=== PATIENT | female | born 1960 | race Two or more races ===

== ENCOUNTER 2022-07-08 06:38 | Outpatient (CLI) | payer OTHER | END 2022-07-08 06:39 | disposition home or self-care (01) | LOC: LAB 06:38 | PROVIDERS: ATTEND Obstetrics & Gynecology | DX: Z20.818 Contact with and (suspected) exposure to other bacterial communicable diseases (principal); Z20.828 Contact with and (suspected) exposure to other viral communicable diseases ==

== ENCOUNTER → 2024-02-21 | Emergency (ER) | payer OTHER ==
[~2024-02-21] VITALS: Ht 170.2 cm; Wt 127.0 kg
[~2024-02-21] MED LIST: ZIPSOR25 MG
== END | disposition left against medical advice (07) ==
LOC: ER 17:26
DX: Z53.21 Procedure and treatment not carried out due to patient leaving prior to being seen by health care provider (principal)

== ENCOUNTER 2024-05-27 10:04 | Outpatient (CLI) | payer OTHER ==
[~2024-05-27 10:04] MED LIST changes: +AVAPRO300 MG PO; +HYDRODIURIL12.5 MG PO; +IRON236 MG PO; +PROTONIX40 MG PO; +TYLENOL ARTHRI650 MG PO
== END 2024-05-27 10:13 | disposition home or self-care (01) ==
LOC: SONOGRAMA 10:04
PROVIDERS: ATTEND Obstetrics & Gynecology
DX: N95.0 Postmenopausal bleeding (principal)

== ENCOUNTER 2024-06-28 08:15 | Inpatient (IN) | payer OTHER ==
[~2024-06-28] VITALS: Ht 198.1 cm; Wt 120.2 kg
[2024-06-28] MEDS ORDERED: COZAAR100 MG PO (09:52)
[2024-06-28] MEDS ORDERED: PEPCID AC20 MG PO (09:53)
[2024-06-28 09:59] VITALS: BP 135/85
[2024-06-28 10:48] LABS: HEMATOCRIT 36.5 % (36.0-45.00); HEMOGLOBIN 12.4 g/dL (12.0-15.00); MEAN CELL VOLUME 85.4 fL (80.00-100.00); PLATELET COUNT 389 K/uL (150-450); RED BLOOD COUNT 4.27 M/uL (4.00-6.00)
[2024-06-28 10:57] LABS: URINE APPEARANCE Clear; URINE BILIRRUBIN Negative (NEGATIVE); URINE BLOOD Negative; URINE COLOR Yellow; URINE GLUCOSE Negative (NEGATIVE); URINE KETONE Negative (NEGATIVE); URINE LEUKOCYTE Negative; URINE NITRATE Positive; URINE PROTEIN Negative (NEGATIVE); URINE UROBILINOGEN 0.2 E.U./dl
[2024-06-28 11:02] LABS: URINE EPITHELIAL CELLS 7.8 uL (0.0-38.8); URINE RBC 13.1 uL (0.0-20.8); URINE WBC 8.1 uL (0.0-23.2)
[2024-06-28 11:08] LABS: INR 1.01
[2024-06-28 11:11] LABS: URINE BACTERIA > 9821.5 uL (0.0-1933)
[2024-06-28 11:49] LABS: ALBUMIN 3.6 gm/dL (3.4-5.0); BILIRUBIN TOTAL 0.38 mg/dL (0.3-1.2); CALCIUM 9.5 mg/dL (8.5-10.1); CREATININE SERUM 0.77 mg/dL (0.55-1.02); GFR 75.96; GLOBULINA 3.7 G/DL (2.4-3.5); POTASSIUM 4.42 mEq/L (3.5-5.1); TOTAL PROTEIN 7.3 gm/dL (6.4-8.2)
[2024-06-28 12:19] LABS: RH POSITIVE
[2024-07-06] MEDS ORDERED: CEFAZOLIN SODIUM 1,000 MG VIAL IV ONE (08:30)
[2024-07-06] MEDS ORDERED: POVIDONE-IODINE 118 ML BOTT TOP ONE (08:30)
[2024-07-06] MEDS ORDERED: SUGAMMADEX SODIUM 200 MG/2 ML VIAL IV ONE (10:00)
[2024-07-06] MEDS ORDERED: MORPHINE SULFATE 4 MG/ML VIAL IV ONE ×2 (10:05→10:35)
[2024-07-06] MEDS ORDERED: DEXTROSE 5 % AND 0.9 % NACL 1,000 ML IV SCH (11:00)
[2024-07-06] MEDS ORDERED: RINGERS SOLUTION,LACTATED 1,000 ML IV SCH (11:00)
[2024-07-06 12:17] VITALS: BP 119/76
[2024-07-06] MEDS ORDERED: MEPERIDINE HCL/PF 25 MG/ML VIAL IM SCH (13:00)
[2024-07-06] MEDS ORDERED: PROMETHAZINE HCL 50 MG/ML AMPUL IM SCH (13:00)
[2024-07-06 15:38] VITALS: BP 102/67
[2024-07-06] MEDS ORDERED: ONDANSETRON HCL 2 MG/ML VIAL IV SCH (17:00)
[2024-07-06] MEDS ORDERED: CEFAZOLIN SODIUM 1,000 MG VIAL IV SCH (17:00)
[2024-07-06 20:10] VITALS: BP 129/73
[2024-07-07 00:34] VITALS: BP 95/60
[2024-07-07] MEDS ORDERED: OxyCODONE HCL/APAP UD (PERCOCET) PO SCH (06:00)
[2024-07-07 08:57] VITALS: BP 104/67
[2024-07-07] MEDS ORDERED: SIMETHICONE 125 MG CAPSULE PO SCH (09:00)
[2024-07-07 11:55] LABS: HEMATOCRIT 27.8 % (36.0-45.00); MEAN CELL VOLUME 86.5 fL (80.00-100.00); MEAN CORPUSCULAR HEMOGLOBIN 28.3 pg (27.00-32.0); MEAN CORPUSCULAR HGB CONC 32.8 g/dl (32.0-36.0); PLATELET COUNT 332 K/uL (150-450); RED BLOOD COUNT 3.21 M/uL (4.00-6.00); RED CELL DISTRIBUTION WIDTH 15.8 % (11.5-14.5)
[2024-07-07 11:57] LABS: HEMOGLOBIN 9.1 g/dL (12.0-15.00)
[2024-07-07 15:54] VITALS: BP 105/72
[2024-07-07 22:20] VITALS: BP 90/60
[2024-07-08] VITALS: BP 113/67
[2024-07-08 04:30] VITALS: BP 92/55
[2024-07-08] MEDS ORDERED: LOPERAMIDE HCL 2 MG CAPSULE PO NR (08:30)
[2024-07-08] MEDS ORDERED: ONDANSETRON 4 MG TAB.RAPDIS PO NR (08:30)
[2024-07-08 08:55] VITALS: BP 95/65
== END 2024-07-08 13:17 | disposition home or self-care (01) | DRG 743 ==
LOC: OB/GYN 07-06 05:20 → O/R 07-06 05:20 → SURH 07-06 08:15 → OB/GYN 07-06 10:40 → SURH 07-06 11:45 → OB/GYN 07-08 13:17
PROVIDERS: ADMIT Obstetrics & Gynecology; ATTEND Obstetrics & Gynecology
PROC: 0UT70ZZ Resection of Bilateral Fallopian Tubes, Open Approach (ICD-10-PCS; 2024-07-06)
PROC: 0UT20ZZ Resection of Bilateral Ovaries, Open Approach (ICD-10-PCS; 2024-07-06)
PROC: 0UT90ZL Resection of Uterus, Supracervical, Open Approach (ICD-10-PCS; principal; 2024-07-06 11:45)
DX: N80.03 Adenomyosis of the uterus (principal); Z20.822 Contact with and (suspected) exposure to COVID-19

== ENCOUNTER 2024-07-09 01:06 | Inpatient (IN) | payer OTHER ==
[~2024-07-09] VITALS: Ht 167.6 cm; Wt 117.9 kg
[~2024-07-09 01:06] MED LIST changes: +COZAAR100 MG PO; +PEPCID AC20 MG PO
--- NOTE | 2024-07-09 01:18 | NUR ---
PACIENTE ALERTA Y ORIENTADA X3 TRAIDA EN AMBULANCIA JUNTO A PARAMEDICOS. REFIERE COMENZAR CON DOLOR ABDOMINAL DESDE LA NOCHE DE HOY, REFIERE HISTERECTOMIA REALIZADA EL MIERCOLES PASADO POR DR. PATTIE WILL. SE CHON S/V Y SE UBICA.
[2024-07-09] MEDS ORDERED: HYOSCYAMINE SULFATE 0.125 MG TAB.SUBL SL STA (01:33)
[2024-07-09] MEDS ORDERED: MEPERIDINE HCL/PF 50 MG/ML VIAL IM STA (01:33)
[2024-07-09] MEDS ORDERED: PROMETHAZINE HCL 50 MG/ML AMPUL IM STA (01:34)
[2024-07-09] MEDS ORDERED: 0.9 % SODIUM CHLORIDE 1,000 ML IV STA (01:35)
--- NOTE | 2024-07-09 01:53 | NUR ---
SE ORIENTA A PACIENTE SOBRE ORDENES MEDICAS, REFIERE ENTENDER. SE COLECTAN MUESTRAS DE LABORATORIO BAJO MEDIDAS ASEPTICAS. PACIENTE CANALIZADA PREVIAMENTE EN AMBULANCIA. SE ADMINISTRAN MEDICAMENTOS SÁNCHEZ ORDEN MEDICA. SE NOTIFICA X-RAY.
[2024-07-09 02:43] LABS: HEMATOCRIT 29.7 % (36.0-45.00); HEMOGLOBIN 9.7 g/dL (12.0-15.00); MEAN CELL VOLUME 86.8 fL (80.00-100.00); MEAN CORPUSCULAR HEMOGLOBIN 28.4 pg (27.00-32.0); MEAN CORPUSCULAR HGB CONC 32.7 g/dl (32.0-36.0); PLATELET COUNT 401 K/uL (150-450); RED BLOOD COUNT 3.42 M/uL (4.00-6.00)
[2024-07-09 04:31] LABS: ALBUMIN 2.8 gm/dL (3.4-5.0); BILIRUBIN TOTAL 0.92 mg/dL (0.3-1.2); CREATININE SERUM 1.16 mg/dL (0.55-1.02); GFR 47.34; GLOBULINA 3.7 G/DL (2.4-3.5); POTASSIUM 3.48 mEq/L (3.5-5.1); TOTAL PROTEIN 6.5 gm/dL (6.4-8.2)
--- NOTE | 2024-07-09 06:16 | NUR ---
SE INSERTA NGT BAJO MEDIDAS ASEPTICAS EN FOSA NASAL RT. SE OBSERVA 300ML DE RESIDUO AMARILLENTO.
[2024-07-09] MEDS ORDERED: PIPERACILLIN/TAZOBACTAM SODIUM 3.375 GM VIAL IV STA (07:07)
--- NOTE | 2024-07-09 08:08 | NUR ---
SE RECIBE PACIENTE ALERTA Y ORIENTADA X 3 ESFERAS EN CAMA CON BARANDAS ELEVADAS POR SEGURIDAD EN COMPANIA DE FAMILIAR. PRESENTANDO BUEN PATRON RESPIRATORIO. RECIBIENDO IV'S 0.9NSS BAJANDO A 120ML/HR POR VENOPUNCION EN ANTEBRAZO [place] AREA CAROLA DE EDEMA Y ERITEMA. NGT EN FOSA NASAL IZQUIERDA DRENANDO A A SUCCION INTERMITENTE. SE OBSERVA EGRESO GASTRICO DE 600ML COLOR AMARILLO. SE ORIENTA A PACIENTE SOBRE TRATAMIENTO MEDICO, REFIERE ENTENDER. SE INSERTA SONDAS URINARIA BAJO MEDIDAS ESTERILES, SE COLECTAN MUESTRAS DE LABORATORIO Y SE ADMINISTRA MEDICAMENTO SÁNCHEZ ORDEN MEDICA. SE CORRINE A PACIENTE EN CAMA CON BARANDAS ELEVADAS POR SEGURIDAD EN COMPANIA DE FAMILIAR. PENDIENTE CONSULTA CON .
[2024-07-09 08:32] LABS: HEMATOCRIT 29.1 % (36.0-45.00); HEMOGLOBIN 9.6 g/dL (12.0-15.00); MEAN CELL VOLUME 86.2 fL (80.00-100.00); MEAN CORPUSCULAR HEMOGLOBIN 28.6 pg (27.00-32.0); MEAN CORPUSCULAR HGB CONC 33.1 g/dl (32.0-36.0); PLATELET COUNT 370 K/uL (150-450); RED BLOOD COUNT 3.38 M/uL (4.00-6.00); RED CELL DISTRIBUTION WIDTH 15.4 % (11.5-14.5)
[2024-07-09 08:34] LABS: URINE APPEARANCE Cloudy; URINE BILIRRUBIN Small (NEGATIVE); URINE BLOOD Trace; URINE COLOR Orange; URINE GLUCOSE Negative (NEGATIVE); URINE KETONE 15 (NEGATIVE); URINE LEUKOCYTE Trace; URINE NITRATE Positive
[2024-07-09 08:38] LABS: URINE CAST 6.33 uL (0.0-1.40); URINE EPITHELIAL CELLS 35.4 uL (0.0-38.8); URINE RBC 7.9 uL (0.0-20.8); URINE WBC 5.2 uL (0.0-23.2)
[2024-07-09 08:39] LABS: INR 1.07; PARTIAL THROMBOPLASTIN TIME 24.1 SECONDS (22.0-34.0); PROTHROMBIN TIME 11.6 SECONDS (9.0-11.5)
[2024-07-09] MEDS ORDERED: PIPERACILLIN/TAZOBACTAM SODIUM 3.375 GM VIAL IV SCH (08:55)
[2024-07-09] MEDS ORDERED: PANTOPRAZOLE SODIUM 40 MG/VIAL VIAL IV SCH (09:00)
[2024-07-09] MEDS ORDERED: 0.9 % SODIUM CHLORIDE 1,000 ML IV ONE (09:00)
[2024-07-09 09:06] LABS: URINE BACTERIA > 9821.5 uL (0.0-1933); URINE PROTEIN 100 (NEGATIVE)
[2024-07-09 09:08] LABS: URINE MUCUS HEAVY
[2024-07-09 17:34] VITALS: BP 110/77
[2024-07-10 08:33] VITALS: BP 104/71
[2024-07-10] MEDS ORDERED: PANTOPRAZOLE SODIUM 40 MG/VIAL VIAL IV SCH (09:00)
[2024-07-10] MEDS ORDERED: 0.9 % SODIUM CHLORIDE 1,000 ML IV SCH (09:45)
[2024-07-10 13:02] VITALS: BP 112/77
[2024-07-10 15:59] VITALS: BP 132/81
[2024-07-11 02:05] VITALS: BP 115/72
[2024-07-11 08:02] VITALS: BP 123/81
[2024-07-11 09:22] LABS: HEMATOCRIT 24.8 % (36.0-45.00); HEMOGLOBIN 8.1 g/dL (12.0-15.00); MEAN CORPUSCULAR HEMOGLOBIN 28.4 pg (27.00-32.0); MEAN CORPUSCULAR HGB CONC 32.7 g/dl (32.0-36.0); PLATELET COUNT 363 K/uL (150-450); RED BLOOD COUNT 2.85 M/uL (4.00-6.00); RED CELL DISTRIBUTION WIDTH 15.3 % (11.5-14.5)
[2024-07-11 10:25] LABS: ALBUMIN 2.2 gm/dL (3.4-5.0); BILIRUBIN TOTAL 1.72 mg/dL (0.3-1.2); CALCIUM 8.3 mg/dL (8.5-10.1); CREATININE SERUM 0.68 mg/dL (0.55-1.02); GFR 87.67; GLOBULINA 3.3 G/DL (2.4-3.5); POTASSIUM 3.53 mEq/L (3.5-5.1); TOTAL PROTEIN 5.5 gm/dL (6.4-8.2)
[2024-07-11 15:41] VITALS: BP 133/75
[2024-07-11 19:23] LABS: HEMATOCRIT 29.8 % (36.0-45.00); HEMOGLOBIN 10.1 g/dL (12.0-15.00); MEAN CELL VOLUME 86.6 fL (80.00-100.00); MEAN CORPUSCULAR HEMOGLOBIN 29.2 pg (27.00-32.0); MEAN CORPUSCULAR HGB CONC 33.8 g/dl (32.0-36.0); PLATELET COUNT 427 K/uL (150-450); RED BLOOD COUNT 3.44 M/uL (4.00-6.00); RED CELL DISTRIBUTION WIDTH 15.5 % (11.5-14.5)
[2024-07-12] VITALS: BP 136/72
[2024-07-12 12:11] VITALS: BP 128/81
[2024-07-12 16:14] VITALS: BP 137/83
[2024-07-12] MEDS ORDERED: AA 4.25%/CAL/LYTES/DEXT 5% 1,000 ML PERIFERAL SCH (17:00)
[2024-07-12 21:00] LABS: CALCIUM 8.7 mg/dL (8.5-10.1); CHOL HDL RATIO 3.1 (0-5.0); CREATININE SERUM 0.59 mg/dL (0.55-1.02); GFR 103.28; POTASSIUM 3.59 mEq/L (3.5-5.1)
[2024-07-13 01:14] VITALS: BP 137/78
[2024-07-13 08:22] VITALS: BP 140/86
[2024-07-13] MEDS ORDERED: PIPERACILLIN/TAZOBACTAM SODIUM 3.375 GM VIAL IV SCH (13:00)
[2024-07-13 16:49] LABS: HEMATOCRIT 27.1 % (36.0-45.00); HEMOGLOBIN 9.2 g/dL (12.0-15.00); MEAN CELL VOLUME 86.6 fL (80.00-100.00); MEAN CORPUSCULAR HEMOGLOBIN 29.4 pg (27.00-32.0); MEAN CORPUSCULAR HGB CONC 33.9 g/dl (32.0-36.0); PLATELET COUNT 426 K/uL (150-450); RED BLOOD COUNT 3.13 M/uL (4.00-6.00); RED CELL DISTRIBUTION WIDTH 15.6 % (11.5-14.5)
[2024-07-13 17:19] LABS: ALBUMIN 2.3 gm/dL (3.4-5.0); BILIRUBIN TOTAL 4.23 mg/dL (0.3-1.2); CALCIUM 8.3 mg/dL (8.5-10.1); CREATININE SERUM 0.51 mg/dL (0.55-1.02); GFR 122.19; POTASSIUM 3.24 mEq/L (3.5-5.1); TOTAL PROTEIN 5.3 gm/dL (6.4-8.2)
[2024-07-13 20:04] VITALS: BP 128/78
[2024-07-13] MEDS ORDERED: PANTOPRAZOLE SODIUM 40 MG/VIAL VIAL IV PRN (21:00)
[2024-07-14] MEDS ORDERED: FAMOtidine 20 MG TABLET PO SCH (09:00)
[2024-07-14] MEDS ORDERED: FUROsemide 20 MG/2 ML VIAL IV PRN (09:15)
[2024-07-14] MEDS ORDERED: LOSARTAN POTASSIUM 100 MG TABLET PO SCH (09:15)
[2024-07-14 11:05] VITALS: BP 119/84
[2024-07-14 16:08] VITALS: BP 131/82
[2024-07-14 19:00] VITALS: BP 137/84
[2024-07-14] MEDS ORDERED: PANTOPRAZOLE SODIUM 40 MG/VIAL VIAL IV SCH (21:00)
[2024-07-15 01:14] VITALS: BP 125/83
[2024-07-15 01:17] LABS: HEMATOCRIT 30.9 % (36.0-45.00); HEMOGLOBIN 10.4 g/dL (12.0-15.00); MEAN CELL VOLUME 86.8 fL (80.00-100.00); MEAN CORPUSCULAR HEMOGLOBIN 29.2 pg (27.00-32.0); MEAN CORPUSCULAR HGB CONC 33.6 g/dl (32.0-36.0); PLATELET COUNT 417 K/uL (150-450); RED BLOOD COUNT 3.56 M/uL (4.00-6.00); RED CELL DISTRIBUTION WIDTH 15.5 % (11.5-14.5)
[2024-07-15 08:00] VITALS: BP 145/81
[2024-07-15 16:00] VITALS: BP 150/76
[2024-07-16 01:21] VITALS: BP 148/92
[2024-07-16] MEDS ORDERED: IPRATROPIUM BROMIDE 0.5 MG/2.5 ML AMPUL.NEB IH SCH (08:32)
[2024-07-16] MEDS ORDERED: GUAIFENESIN 200 MG/10 ML BLIST.PACK PO SCH (08:33)
[2024-07-16 08:45] VITALS: BP 131/87; O2SAT 96
[2024-07-16] MEDS ORDERED: ONDANSETRON HCL 2 MG/ML VIAL IV PRN (08:45)
[2024-07-16 10:59] LABS: ALBUMIN 2.2 gm/dL (3.4-5.0); BILIRUBIN TOTAL 1.55 mg/dL (0.3-1.2); CALCIUM 8.2 mg/dL (8.5-10.1); CREATININE SERUM 0.57 mg/dL (0.55-1.02); GFR 107.47; GLOBULINA 2.9 G/DL (2.4-3.5); POTASSIUM 3.22 mEq/L (3.5-5.1); TOTAL PROTEIN 5.1 gm/dL (6.4-8.2)
[2024-07-16 15:40] VITALS: BP 140/89
[2024-07-17 00:52] VITALS: BP 139/83
[2024-07-17 08:00] VITALS: BP 127/80
[2024-07-17 15:08] VITALS: BP 141/83
[2024-07-18 02:25] VITALS: BP 139/80
[2024-07-18 08:18] VITALS: BP 123/73
== END 2024-07-18 16:29 | disposition home or self-care (01) | DRG 390 ==
LOC: ER 01:06 → OB/GYN 09:11
PROVIDERS: Internal Medicine; ADMIT Obstetrics & Gynecology; ATTEND Obstetrics & Gynecology
PROC: BW21ZZZ Computerized Tomography (CT Scan) of Abdomen and Pelvis (ICD-10-PCS; principal; 2024-07-09)
PROC: 30233N1 Transfusion of Nonautologous Red Blood Cells into Peripheral Vein, Percutaneous Approach (ICD-10-PCS; 2024-07-11)
PROC: 3E0336Z Introduction of Nutritional Substance into Peripheral Vein, Percutaneous Approach (ICD-10-PCS; 2024-07-12)
PROC: 05HC33Z Insertion of Infusion Device into Left Basilic Vein, Percutaneous Approach (ICD-10-PCS; 2024-07-12)
PROC: BW21ZZZ Computerized Tomography (CT Scan) of Abdomen and Pelvis (ICD-10-PCS; 2024-07-12)
PROC: 3E0F7GC Introduction of Other Therapeutic Substance into Respiratory Tract, Via Natural or Artificial Opening (ICD-10-PCS; 2024-07-16)
DX: K91.30 Postprocedural intestinal obstruction, unspecified as to partial versus complete (principal); N95.0 Postmenopausal bleeding; Z20.822 Contact with and (suspected) exposure to COVID-19

== ENCOUNTER 2024-08-01 23:11 | Emergency (ER) | payer OTHER ==
[~2024-08-01] VITALS: Ht 167.6 cm; Wt 113.4 kg
[2024-08-01 23:36] VITALS: BP 131/90; O2SAT 97
[2024-08-02] MEDS ORDERED: METOCLOPRAMIDE HCL 5 MG/ML VIAL IM STA (05:02)
[2024-08-02] MEDS ORDERED: MINERAL OIL 30 ML BLIST.PACK PO STA (05:06)
[2024-08-02] MEDS ORDERED: MAGNESIUM HYDROXIDE 400 MG/5 ML ML PO STA (05:06)
[2024-08-02] MEDS ORDERED: HYOSCYAMINE SULFATE 0.125 MG TAB.SUBL SL ONE (05:15)
[2024-08-02] MEDS ORDERED: HYOSCYAMINE SULFATE 0.125 MG TAB.SUBL ONE (05:25)
[2024-08-02] MEDS ORDERED: MINERAL OIL 30 ML BLIST.PACK ONE (05:25)
[2024-08-02] MEDS ORDERED: METOCLOPRAMIDE HCL 5 MG/ML VIAL ONE (05:25)
[2024-08-02] MEDS ORDERED: MAGNESIUM HYDROXIDE 30 ML BLIST.PACK PO ONE ×3 (05:26→10:16)
[2024-08-02 06:18] LABS: HEMATOCRIT 37.6 % (36.0-45.00); HEMOGLOBIN 12.5 g/dL (12.0-15.00); MEAN CORPUSCULAR HEMOGLOBIN 29.7 pg (27.00-32.0); MEAN CORPUSCULAR HGB CONC 33.3 g/dl (32.0-36.0); PLATELET COUNT 427 K/uL (150-450); RED BLOOD COUNT 4.23 M/uL (4.00-6.00); RED CELL DISTRIBUTION WIDTH 16.6 % (11.5-14.5)
[2024-08-02 06:44] LABS: CALCIUM 9.7 mg/dL (8.5-10.1); CREATININE SERUM 0.91 mg/dL (0.55-1.02); GFR 62.44; POTASSIUM 4.07 mEq/L (3.5-5.1)
[2024-08-02] MEDS ORDERED: HYDROGEN PEROXIDE 473 ML BOTTLE TOP ONE (08:15)
[2024-08-02] MEDS ORDERED: LACTULOSE 20 G/30 ML BLIST.PACK PO STA (09:58)
[2024-08-02] MEDS ORDERED: MAGNESIUM SULFATE IN WATER 0.04 GM/ML IV.SOLN IV STA (09:59)
[2024-08-02] MEDS ORDERED: LACTULOSE 20 G/30 ML BLIST.PACK ONE ×2 (10:02→10:16)
[2024-08-02] MEDS ORDERED: MAGNESIUM HYDROXIDE 30 ML BLIST.PACK PO STA (10:14)
== END 2024-08-02 10:24 | disposition home or self-care (01) ==
LOC: ER 23:13
DX: R10.9 Unspecified abdominal pain (principal); K59.00 Constipation, unspecified
CPT/HCPCS: 36415; 74240; 96372; 99283; J2765

== ENCOUNTER 2024-08-19 09:12 | Emergency (ER) | payer OTHER ==
[~2024-08-19] VITALS: Ht 167.6 cm; Wt 107.0 kg
[2024-08-19] MEDS ORDERED: DOCUSATE CALCI240 MG PO (09:23)
[2024-08-19] MEDS ORDERED: LEVALBUTEROL HCL 1.25 MG/3 ML SOLUTION IH ONE (11:00)
[2024-08-19] MEDS ORDERED: MONTELUKAST SODIUM 10 MG TABLET PO ONE (11:00)
[2024-08-19 11:25] LABS: HEMATOCRIT 36.5 % (36.0-45.00); HEMOGLOBIN 12.1 g/dL (12.0-15.00); MEAN CELL VOLUME 88.1 fL (80.00-100.00); MEAN CORPUSCULAR HEMOGLOBIN 29.3 pg (27.00-32.0); MEAN CORPUSCULAR HGB CONC 33.3 g/dl (32.0-36.0); PLATELET COUNT 341 K/uL (150-450); RED BLOOD COUNT 4.14 M/uL (4.00-6.00); RED CELL DISTRIBUTION WIDTH 16.3 % (11.5-14.5)
[2024-08-19 12:20] LABS: PH,URINE 5.5 (5.0-8.0); URINE APPEARANCE Clear; URINE BILIRRUBIN Negative (NEGATIVE); URINE BLOOD Negative; URINE COLOR Yellow; URINE GLUCOSE Negative (NEGATIVE); URINE KETONE Negative (NEGATIVE); URINE LEUKOCYTE Negative; URINE NITRATE Negative; URINE PROTEIN Negative (NEGATIVE); URINE UROBILINOGEN 0.2 E.U./dl
[2024-08-19 12:24] LABS: URINE EPITHELIAL CELLS 2.2 uL (0.0-38.8); URINE WBC 13.5 uL (0.0-23.2)
[2024-08-19] MEDS ORDERED: LEVALBUTEROL HCL 0.63 MG/3 ML SOLUTION IH ONE (12:25)
[2024-08-19 12:30] LABS: URINE BACTERIA > 9821.5 uL (0.0-1933); URINE CAST 0.14 uL (0.0-1.40); URINE RBC 0.4 uL (0.0-20.8)
[2024-08-19 12:31] LABS: ALBUMIN 3.3 gm/dL (3.4-5.0); BILIRUBIN TOTAL 0.37 mg/dL (0.3-1.2); CALCIUM 9.4 mg/dL (8.5-10.1); CREATININE SERUM 0.8 mg/dL (0.55-1.02); GFR 72.44; POTASSIUM 3.97 mEq/L (3.5-5.1); TOTAL PROTEIN 7.3 gm/dL (6.4-8.2)
== END 2024-08-19 14:29 | disposition home or self-care (01) ==
LOC: ER 09:14
PROVIDERS: General Practice
DX: R42 Dizziness and giddiness (principal); R06.02 Shortness of breath; I50.9 Heart failure, unspecified; I11.0 Hypertensive heart disease with heart failure; Z20.822 Contact with and (suspected) exposure to COVID-19